=== PATIENT | female | born 1955 | race American Indian/Alaskan Native ===

== ENCOUNTER 2016-09-22 18:43 | Emergency (ER) | payer MEDICARE ==
[2016-09-22 19:04] VITALS: BP 156/94
[2016-09-22 21:37] LABS: Anion Gap 19 mmol/L; BUN/Creatinine Ratio 11.42; Blood Urea Nitrogen 8 mg/dL (7-17); Carbon Dioxide 26 mmol/L (22-30); Chloride 100.4 mmol/L (98-107); Glucose 162 mg/dL (65-100); Potassium 3.9 mmol/L (3.6-5.0); Sodium 141 mmol/L (137-145)
[2016-09-22] MEDS ORDERED: TORADOL IM ONE (21:47)
[2016-09-22] MEDS ORDERED: BENADRYL PO ONE (21:50)
--- NOTE | 2016-09-22 21:56 | XRay Report ---
FINAL REPORT PROCEDURE: XR CHEST ROUTINE 2V TECHNIQUE: PA and lateral chest radiographs were obtained. CPT 79100 HISTORY: cough COMPARISON: July 29, 2015 FINDINGS: Heart: Normal. Mediastinum/Vessels: Normal. Lungs/Pleural space: Normal. Bony thorax: No acute osseous abnormality. Degenerative change Other: IMPRESSION: No acute cardiopulmonary disease.
[2016-09-22 21:57] LABS: Basophils % (Auto) 0.9 % (0.0-1.8); Eosinophils % (Auto) 4.2 % (0.0-4.3); Hematocrit 39.7 % (30.3-42.9); Hemoglobin 13.1 gm/dl (10.1-14.3); Mean Corpuscular HGB Conc 33 % (30-34); Mean Corpuscular Hemoglobin 29 pg (28-32); Mean Corpuscular Volume 88 fl (79-97); Platelet Count 318 K/mm3 (140-440); Red Blood Count 4.49 M/mm3 (3.65-5.03); Red Cell Distribution Width 12.9 % (13.2-15.2); White Blood Count 7.7 K/mm3 (4.5-11.0)
[2016-09-22] MEDS ORDERED: PHENERGAN/CODEINE 6.25-10 MG/5ML PO ONE (22:00)
--- NOTE | 2016-09-22 22:26 | Emergency Department Report ---
Minor Respiratory - HPI Chief Complaint: Upper Respiratory Infection Stated Complaint: COUGH/CONGESTION/STUFFY NOSE Duration: 4 Days Pain Location: Throat, Nose Severity: mild Minor Respiratory: Yes Sore Throat, Yes Able to Tolerate Fluids, Yes Ear Pain, Yes Cough, Yes Fever (low grade fever), No Rhinorrhea, No Sick Contacts, No Hemoptysis, No Chest Pain, No Shortness of Breath Other History: 61 year old female presents to ED with cough, congestion, low grade fever, sore throat and mild sinus headache x4 days. patient is stable, neurologically intact and in no acute distress. ED Review of Systems ROS: Stated complaint: COUGH/CONGESTION/STUFFY NOSE Other details as noted in HPI Constitutional: fever (low grade). denies: chills, diaphoresis, malaise, weakness Eyes: denies: eye pain, eye discharge, vision change ENT: ear pain, throat pain, congestion Respiratory: cough. denies: shortness of breath, stridor, wheezing Cardiovascular: denies: chest pain, palpitations Endocrine: no symptoms reported Gastrointestinal: denies: abdominal pain, nausea, vomiting, diarrhea Genitourinary: denies: urgency, dysuria, discharge Musculoskeletal: denies: back pain, joint swelling, arthralgia Skin: denies: rash, lesions Neurological: denies: headache, weakness, numbness, paresthesias, confusion, abnormal gait, vertigo Psychiatric: denies: anxiety, depression Hematological/Lymphatic: denies: easy bleeding, easy bruising ED Past Medical Hx - Past Medical History Previous Medical History?: Yes Hx Diabetes: Yes Hx Arthritis: Yes Additional medical history: A-Fib - Surgical History Past Surgical History?: Yes Additional Surgical History: Partial Hysterectomy in 2005. hernia repair x 4 - Social History Smoking Status: Never Smoker Substance Use Type: None - Medications Home Medications: Home Medications Medication Instructions Recorded Confirmed Last Taken Type Acyclovir [Zovirax Tab] 800 mg PO 5XD #35 tab 05/17/14 05/21/14 05/21/14 Rx HYDROcodone/APAP 5-325 [[place] 1 each PO Q6HR PRN #14 tablet 05/17/14 05/21/14 Rx 5-325 mg TAB] Hydrocortisone 1% [Hydrocortisone 1 applicatio TP TID #1 tube 05/17/14 05/21/14 05/21/14 Rx 1% CREAM] Hydroxyzine HCl [hydrOXYzine] 50 mg PO Q6H PRN #14 tablet 05/17/14 05/21/14 Unknown Rx Ibuprofen [Motrin] 800 mg PO Q8H PRN #60 tablet 05/17/14 05/21/14 05/21/14 Rx metFORMIN [Glucophage] 850 mg PO BID 05/17/14 05/21/14 05/21/14 History Promethazine /Codeine 5 ml PO Q6H PRN #90 ml 06/27/15 Unknown Rx [Phenergan/Codeine 6.25-10 mg/5Ml] guaiFENesin [Mucinex] 600 mg PO Q12HR #20 tab.er.12h 06/27/15 Unknown Rx Benzonatate [Tessalon Perles] 100 mg PO Q8HR #15 capsule 07/30/15 Unknown Rx HYDROcodone/APAP 5-325 [[place] 1 each PO Q24HR #5 tablet 07/30/15 Unknown Rx 5/325] Azithromycin [Zithromax] 250 mg PO DAILY #1 pack 09/22/16 Unknown Rx Cetirizine HCl/Pseudoephedrine 1 each PO BID #14 tab.er.12h 09/22/16 Unknown Rx [Allergy+Congestion Relf-D Tab] Minor Respiratory Exam - Exam General: Vital signs noted. No distress. Alert and acting appropriately. HEENT: Yes Moist Mucous Membranes, Yes Frontal Tenderness, Yes Maxillary Tenderness, No Pharyngeal Erythema, No Pharyngeal Exudates, No Rhinorrhea, No Conjuctival Injection Ear: Neither TM Bulge, Neither TM Erythema, Neither EAC Pain, Neither EAC Discharge Neck: Yes Supple, No Adenopathy Lungs: Yes Good Air Exchange, No Wheezes, No [place], No Stridor, No Cough, No Labored Respirations, No Retractions, No Use of Accessory Muscles, No Other Abnormal Lung Sounds Heart: Yes Regular, No Murmur Abdomen: Yes Normal Bowel Sounds, No Tenderness, No Peritoneal Signs Skin: No Rash, No Edema Neurologic: Alert and oriented, no deficits. Musculoskeletal: Unremarkable. ED Course Vital Signs 09/22/16 19:02 Temperature 99.8 F H Pulse Rate 78 Respiratory 18 Rate Blood Pressure 156/94 O2 Sat by Pulse 98 Oximetry ED Medical Decision Making - Lab Data Result diagrams: 09/22/16 21:00 09/22/16 21:00 Labs 09/22/16 09/22/16 21:00 21:00 WBC 7.7 RBC 4.49 Hgb 13.1 Hct 39.7 MCV 88 MCH 29 MCHC 33 RDW 12.9 L Plt Count 318 Lymph % (Auto) 29.7 [place] % (Auto) 10.6 H Eos % (Auto) 4.2 Baso % (Auto) 0.9 Lymph # 2.3 [place] # 0.8 Eos # 0.3 Baso # 0.1 Seg Neutrophils % 54.6 Seg Neutrophils # 4.2 Sodium 141 Potassium 3.9 Chloride 100.4 Carbon Dioxide 26 Anion Gap 19 BUN 8 Creatinine 0.7 Estimated GFR > 60 BUN/Creatinine Ratio 11.42 Glucose 162 H Calcium 9.0 Vital Signs 09/22/16 19:02 Temperature 99.8 F H Pulse Rate 78 Respiratory 18 Rate Blood Pressure 156/94 O2 Sat by Pulse 98 Oximetry Temp Pulse Resp BP Pulse Ox 99.2 F 78 18 156/94 98 09/22/16 23:04 09/22/16 19:02 09/22/16 19:02 09/22/16 19:02 09/22/16 19:02 - Radiology Data Radiology results: report reviewed CXR no acute disease - Medical Decision Making 61 year old female presents to ED with productive cough, low grade fever and congestion. patient has normal WBC and normal CXR. patient has had blood cultures drawn and will placed on antibiotics for complicated bronchitis due to patient being diabetic. patient is stable, neurologically intact and in no acute distress. patient understands and agrees not to use Afrin for more than 3 days for congestion. Critical care attestation.: If time is entered above; I have spent that time in minutes in the direct care of this critically ill patient, excluding procedure time. ED Disposition Clinical Impression: Bronchitis, acute Qualifiers: Bronchitis organism: unspecified organism Qualified Code(s): J20.9 - Acute bronchitis, unspecified Disposition: -01 TO HOME OR SELFCARE Is pt being admited?: No Does the pt Need Aspirin: No Condition: Stable Instructions: Acute Bronchitis (ED) Additional Instructions: DO NOT use afrin nasal spray for more than 3 consecutive days total. Use Zyrtec- D for congestion symptoms after 3 days of Afrin. Prescriptions: Azithromycin [Zithromax] 250 mg PO DAILY #1 pack Cetirizine HCl/Pseudoephedrine [Allergy+Congestion Relf-D Tab] 1 each PO BID # 14 tab.er.12h Referrals: YARITZA RONDON MD [Primary Care Provider] - 3-5 Days Forms: Work/School Release Form(ED)
[2016-09-22] MEDS ORDERED: AFRIN NS ONE (22:44)
== END 2016-09-22 23:04 | disposition home or self-care (01) ==
LOC: ED 18:43
DX: J20.9 Acute bronchitis, unspecified (principal); E11.9 Type 2 diabetes mellitus without complications; M19.90 Unspecified osteoarthritis, unspecified site; I48.91 Unspecified atrial fibrillation; Z90.711 Acquired absence of uterus with remaining cervical stump
CPT/HCPCS: 36415; 71020; 80048; 85025; 87040; 87116; 87400; 87430; 96372; 99284; J1885

== ENCOUNTER 2016-12-09 10:34 | Emergency (ER) | payer MEDICARE ==
[2016-12-09 10:45] VITALS: BP 171/115
--- NOTE | 2016-12-09 12:27 | Emergency Department Report ---
ED General Adult HPI - General Chief complaint: Eye Problems Stated complaint: COLD SYMPTOMS Time Seen by Provider: 12/09/16 12:19 Source: patient Mode of arrival: Ambulatory Limitations: No Limitations - History of Present Illness Initial comments: pt is a 58 y/o aaf with hx of asthma, bronchitis, who presents for uri symptoms and "pinkeye" after caring for child with pink eye 3 days ago" as " we stayed hotel with baby with pink eye and now I have it eye green matted mucus for 2 days no change in vision , bronchitis acting up as well cough yellow green phlem , sinus pain , earache, and cough, noc fever" pt endorse out of albuterol, has been taking otc bp medications, for symptoms because she cannot get pcp appointment for 2 weeks. Onset/Timin -: days(s) Location: eyes Radiation: non-radiation Severity scale (0 -10): 4 Quality: burning, other (purulent discharge ) Consistency: intermittent Improves with: none Worsens with: other (in am ) Associated Symptoms: cough, fever/chills. denies: headaches, loss of appetite, malaise, nausea/vomiting, rash, seizure, shortness of breath, syncope, weakness Treatments Prior to Arrival: none - Related Data Home Medications Medication Instructions Recorded Confirmed Last Taken metFORMIN [Glucophage] 850 mg PO BID 05/17/14 05/21/14 05/21/14 Previous Rx's Medication Instructions Recorded Last Taken Type Acyclovir [Zovirax Tab] 800 mg PO 5XD #35 tab 05/17/14 05/21/14 Rx HYDROcodone/APAP 5-325 [[place] 1 each PO Q6HR PRN #14 tablet 05/17/14 05/18/14 Rx 5-325 mg TAB] Hydrocortisone 1% [Hydrocortisone 1 applicatio TP TID #1 tube 05/17/14 05/21/14 Rx 1% CREAM] Hydroxyzine HCl [hydrOXYzine] 50 mg PO Q6H PRN #14 tablet 05/17/14 Unknown Rx Ibuprofen [Motrin] 800 mg PO Q8H PRN #60 tablet 05/17/14 05/21/14 Rx Promethazine /Codeine 5 ml PO Q6H PRN #90 ml 06/27/15 Unknown Rx [Phenergan/Codeine 6.25-10 mg/5Ml] guaiFENesin [Mucinex] 600 mg PO Q12HR #20 tab.er.12h 06/27/15 Unknown Rx Benzonatate [Tessalon Perles] 100 mg PO Q8HR #15 capsule 07/30/15 Unknown Rx HYDROcodone/APAP 5-325 [[place] 1 each PO Q24HR #5 tablet 07/30/15 Unknown Rx 5/325] Azithromycin [Zithromax] 250 mg PO DAILY #1 pack 09/22/16 Unknown Rx Cetirizine HCl/Pseudoephedrine 1 each PO BID #14 tab.er.12h 09/22/16 Unknown Rx [Allergy+Congestion Relf-D Tab] ALBUTEROL Inhaler [ProAir HFA 2 puff IH QID PRN #2 inhalation 12/09/16 Unknown Rx Inhaler] Cetirizine HCl [ZyrTEC] 10 mg PO DAILY #30 capsule 12/09/16 Unknown Rx P-Ephed HCl/Codeine/Guaifen 5 ml PO Q6H PRN #120 ml 12/09/16 Unknown Rx [Cheratussin DAC 30-10-100 mg/5 ml] Polymyxin B Sulf/Trimethoprim 1 drop OP QID #1 bottle 12/09/16 Unknown Rx [Polytrim Eye Drops [id number]/0.1%] Allergies Allergy/AdvReac Type Severity Reaction Status Date / Time tramadol Allergy Rash Verified 09/22/16 19:01 Penicillins AdvReac Shortness Verified 07/30/15 05:34 of Breath shellfish derived AdvReac Rash Verified 07/30/15 05:34 Sulfa (Sulfonamide AdvReac Hives Verified 07/30/15 05:34 Antibiotics) ED Review of Systems ROS: Stated complaint: COLD SYMPTOMS Other details as noted in HPI Constitutional: denies: chills, fever Eyes: eye pain (bilat itching burning ), eye discharge (purulent ). denies: vision change ENT: denies: ear pain, throat pain Respiratory: cough (productive yellow clear ). denies: shortness of breath, wheezing Cardiovascular: denies: chest pain, palpitations Endocrine: no symptoms reported Gastrointestinal: denies: abdominal pain, nausea, diarrhea Genitourinary: denies: urgency, dysuria, discharge Musculoskeletal: denies: back pain, joint swelling, arthralgia Skin: denies: rash, lesions Neurological: denies: headache, weakness, paresthesias Psychiatric: denies: anxiety, depression Hematological/Lymphatic: denies: easy bleeding, easy bruising ED Past Medical Hx - Past Medical History Hx Diabetes: Yes Hx Arthritis: Yes Additional medical history: A-Fib - Surgical History Additional Surgical History: Partial Hysterectomy in 2005. hernia repair x 4 - Social History Smoking Status: Never Smoker Substance Use Type: Alcohol - Medications Home Medications: Home Medications Medication Instructions Recorded Confirmed Last Taken Type Acyclovir [Zovirax Tab] 800 mg PO 5XD #35 tab 05/17/14 05/21/14 05/21/14 Rx HYDROcodone/APAP 5-325 [[place] 1 each PO Q6HR PRN #14 tablet 05/17/14 05/21/14 Rx 5-325 mg TAB] Hydrocortisone 1% [Hydrocortisone 1 applicatio TP TID #1 tube 05/17/14 05/21/14 05/21/14 Rx 1% CREAM] Hydroxyzine HCl [hydrOXYzine] 50 mg PO Q6H PRN #14 tablet 05/17/14 05/21/14 Unknown Rx Ibuprofen [Motrin] 800 mg PO Q8H PRN #60 tablet 05/17/14 05/21/14 05/21/14 Rx metFORMIN [Glucophage] 850 mg PO BID 05/17/14 05/21/14 05/21/14 History Promethazine /Codeine 5 ml PO Q6H PRN #90 ml 06/27/15 Unknown Rx [Phenergan/Codeine 6.25-10 mg/5Ml] guaiFENesin [Mucinex] 600 mg PO Q12HR #20 tab.er.12h 06/27/15 Unknown Rx Benzonatate [Tessalon Perles] 100 mg PO Q8HR #15 capsule 07/30/15 Unknown Rx HYDROcodone/APAP 5-325 [[place] 1 each PO Q24HR #5 tablet 07/30/15 Unknown Rx 5/325] Azithromycin [Zithromax] 250 mg PO DAILY #1 pack 09/22/16 Unknown Rx Cetirizine HCl/Pseudoephedrine 1 each PO BID #14 tab.er.12h 09/22/16 Unknown Rx [Allergy+Congestion Relf-D Tab] ALBUTEROL Inhaler [ProAir HFA 2 puff IH QID PRN #2 inhalation 12/09/16 Unknown Rx Inhaler] Cetirizine HCl [ZyrTEC] 10 mg PO DAILY #30 capsule 12/09/16 Unknown Rx P-Ephed HCl/Codeine/Guaifen 5 ml PO Q6H PRN #120 ml 12/09/16 Unknown Rx [Cheratussin DAC 30-10-100 mg/5 ml] Polymyxin B Sulf/Trimethoprim 1 drop OP QID #1 bottle 12/09/16 Unknown Rx [Polytrim Eye Drops [id number]/0.1%] ED Physical Exam - General Limitations: No Limitations General appearance: alert, in no apparent distress - Head Head exam: Present: atraumatic, normocephalic - Eye Eye exam: Present: normal appearance, PERRL, EOMI, other (conjunctival erythema bilat ) Pupils: Present: normal accommodation - Expanded Eye Exam Expanded Eyelids: Normal Inspection: Left Pupils: Regular, Round: Bilateral, Reactive: Bilateral Sclera/Conjunctival: Injection: Bilateral, Exudate: Bilateral Anterior chamber: Normal Inspection: Bilateral Visual acuity (R) = 20/: 40 Visual acuity (L) = 20/: 40 With correction: No - ENT ENT exam: Present: mucous membranes moist, TM's normal bilaterally, normal external ear exam - Expanded ENT Exam Expanded Mouth exam: Present: normal external inspection, tongue normal. Absent: trismus , tongue elevation Throat exam: Positive: normal inspection, tonsillar erythema (no exudate no lesion uvula midline no stridor airway is patent clear post nasal drip.). Negative: tonsillomegaly, tonsillar exudate, R peritonsillar mass, L peritonsillar mass - Neck Neck exam: Present: normal inspection, full ROM. Absent: tenderness, lymphadenopathy, thyromegaly - Expanded Neck Exam Expanded Neck exam: Absent: tenderness, midline deformity, anterior neck swelling, thyroid mass, carotid bruit, tracheal deviation - Respiratory Respiratory exam: Present: normal lung sounds bilaterally. Absent: respiratory distress, wheezes, stridor, chest wall tenderness - Cardiovascular Cardiovascular Exam: Present: regular rate, normal rhythm. Absent: systolic murmur, diastolic murmur, rubs, gallop - GI/Abdominal GI/Abdominal exam: Present: soft, normal bowel sounds - Rectal Rectal exam: Present: deferred - Extremities Exam Extremities exam: Present: normal inspection - Back Exam Back exam: Present: normal inspection, full ROM. Absent: tenderness, CVA tenderness (R), CVA tenderness (L), muscle spasm, paraspinal tenderness, vertebral tenderness, rash noted - Neurological Exam Neurological exam: Present: alert, oriented X3, normal gait, reflexes normal - Psychiatric Psychiatric exam: Present: normal affect, normal mood - Skin Skin exam: Present: warm, dry, intact, normal color. Absent: rash ED Course Vital Signs 12/09/16 10:41 Temperature 98.6 F Pulse Rate 95 H Blood Pressure 171/115 O2 Sat by Pulse 97 Oximetry ED Medical Decision Making - Medical Decision Making pt is a 58 y/o aaf with hx of asthma, bronchitis, who presents for uri symptoms and "pinkeye" after caring for child with pink eye 3 days ago" as " we stayed hotel with baby with pink eye and now I have it eye green matted mucus for 2 days no change in vision , bronchitis acting up as well cough yellow green phlem , sinus pain , earache, and cough, noc fever" pt endorse out of albuterol, has been taking otc bp medications, for symptoms because she cannot get pcp appointment for 2 weeks. pt denies headache no dizziness no light headedness no cp no sob, exam: no exudate no lesion uvula midline no stridor airway is patent clear post nasal drip. plan tx for conjunctivitis , bronchitis refill albuterol, stop taking otc cold medications, follow up with primary care in 3-4 days as scheduled. Critical care attestation.: If time is entered above; I have spent that time in minutes in the direct care of this critically ill patient, excluding procedure time. ED Disposition Clinical Impression: Bronchitis Conjunctivitis Qualifiers: Conjunctivitis type: acute Acute conjunctivitis type: bacterial Laterality: bilateral Qualified Code(s): H10.33 - Unspecified acute conjunctivitis, bilateral URI (upper respiratory infection) Qualifiers: URI type: acute nasopharyngitis (common cold) Qualified Code(s): J00 - Acute nasopharyngitis [common cold] Disposition: TO HOME OR SELFCARE Is pt being admited?: No Does the pt Need Aspirin: No Condition: Good Instructions: Chronic Bronchitis (ED), Conjunctivitis (ED) Prescriptions: ALBUTEROL Inhaler [ProAir HFA Inhaler] 2 puff IH QID PRN #2 inhalation PRN Reason: Shortness Of Breath Cetirizine HCl [ZyrTEC] 10 mg PO DAILY #30 capsule P-Ephed HCl/Codeine/Guaifen [Cheratussin DAC 30-10-100 mg/5 ml] 5 ml PO Q6H PRN #120 ml PRN Reason: Cough Polymyxin B Sulf/Trimethoprim [Polytrim Eye Drops [id number]/0.1%] 1 drop OP QID #1 bottle Referrals: PRIMARY CARE, [Primary Care Provider] - 3-5 Days Forms: Work/School Release Form(ED) Time of Disposition: 12:58
== END 2016-12-09 13:10 | disposition home or self-care (01) ==
LOC: ED 10:34
DX: J40 Bronchitis, not specified as acute or chronic (principal); H10.9 Unspecified conjunctivitis; J06.9 Acute upper respiratory infection, unspecified; E11.9 Type 2 diabetes mellitus without complications; M19.90 Unspecified osteoarthritis, unspecified site; Z88.2 Allergy status to sulfonamides; Z88.6 Allergy status to analgesic agent; Z88.0 Allergy status to penicillin; Z91.013 Allergy to seafood
CPT/HCPCS: 99282

== ENCOUNTER 2016-12-12 14:53 | Emergency (ER) | payer MEDICARE ==
[2016-12-12 15:18] VITALS: BP 157/86
[2016-12-12] MEDS ORDERED: ZITHROMAX PO ONE (15:18)
[2016-12-12] MEDS ORDERED: TYLENOL PO ONE (15:19)
--- NOTE | 2016-12-12 15:49 | Emergency Department Report ---
Chief Complaint: Fever Stated Complaint: FEVER - HPI History of Present Illness: 61F P/w c/o persisting cough despite use of cough medicines. hx of copd - Exam Vital Signs: Vital Signs 12/12/16 15:14 Temperature 100.8 F H Pulse Rate 91 H Respiratory 20 Rate Blood Pressure 157/86 O2 Sat by Pulse 100 Oximetry Physical Exam: heart s1/s2, lungs grossly clear MSE screening note: Focused history and physical exam performed. Due to findings the following was ordered: a/p: acute bronchitis 1- nebs, tylenol, azithro 2- CXR ED Disposition for MSE Condition: Stable
--- NOTE | 2016-12-12 16:29 | XRay Report ---
ROUTINE CHEST, TWO VIEWS: HISTORY: Short of breath. The trachea, heart, mediastinal contour, lung lewis and bony thorax are unremarkable. IMPRESSION: Unremarkable chest x-ray.
[2016-12-12 17:37] LABS: Bacteria,Urine 1+ /HPF (Negative); Bilirubin,Urine NEG (Negative); Blood,Urine NEG (Negative); Ketones,Urine TR mg/dL (Negative); Leukocyte Esterase,Urine NEG (Negative); Mucus,Urine FEW /HPF; Nitrite,Urine NEG (Negative); Urobilinogen,Urine < 2.0 mg/dL (<2.0)
== END 2016-12-12 18:33 | disposition left against medical advice (07) ==
LOC: ED 14:53
DX: R05 Cough (principal); J44.9 Chronic obstructive pulmonary disease, unspecified
CPT/HCPCS: 71020; 81001

== ENCOUNTER 2017-04-09 12:24 | Emergency (ER) | payer MEDICARE ==
[2017-04-09 13:30] VITALS: BP 122/71
--- NOTE | 2017-04-09 17:23 | Emergency Department Report ---
ED Recheck HPI - General Chief Complaint: Pain General Stated Complaint: BODY PAIN HX ARTHRITIS Time Seen by Provider: 04/09/17 16:39 Source: patient Mode of arrival: Ambulatory Limitations: No Limitations - History of Present Illness Initial Comments: This is a 62-year-old female nontoxic, well nourished in appearance, no acute signs of distress presents to the ED with c/o of generalized Arthritic pain. Patient said this is a chronic condition that she follows up with a primary care doctor which she was referred to a pain specialist. Patient stated the pain specialist is not able to see the patient until next week and patient is in severe pain. Patient denies any chest pain, shortness of breath, fever, chills, body aches, headache, stiff neck, nausea, vomiting, numbness or tingling. She states allergies to sulfa and penicillin and tramadol. MD Complaint: medication refill request -: year(s) Returns Today for: request for prescription Symptoms Since Prior Visit: no new symptoms Associated Symptoms: none. denies: fever, chills, chest pain, shortness of breath, rash, malaise, [place], abdominal pain - Related Data Home Medications Medication Instructions Recorded Confirmed Last Taken metFORMIN [Glucophage] 850 mg PO BID 05/17/14 05/21/14 05/21/14 Previous Rx's Medication Instructions Recorded Last Taken Type Acyclovir [Zovirax Tab] 800 mg PO 5XD #35 tab 05/17/14 05/21/14 Rx HYDROcodone/APAP 5-325 [[place] 1 each PO Q6HR PRN #14 tablet 05/17/14 05/18/14 Rx 5-325 mg TAB] Hydrocortisone 1% [Hydrocortisone 1 applicatio TP TID #1 tube 05/17/14 05/21/14 Rx 1% CREAM] Hydroxyzine HCl [hydrOXYzine] 50 mg PO Q6H PRN #14 tablet 05/17/14 Unknown Rx Ibuprofen [Motrin] 800 mg PO Q8H PRN #60 tablet 05/17/14 05/21/14 Rx Promethazine /Codeine 5 ml PO Q6H PRN #90 ml 06/27/15 Unknown Rx [Phenergan/Codeine 6.25-10 mg/5Ml] guaiFENesin [Mucinex] 600 mg PO Q12HR #20 tab.er.12h 06/27/15 Unknown Rx Benzonatate [Tessalon Perles] 100 mg PO Q8HR #15 capsule 07/30/15 Unknown Rx HYDROcodone/APAP 5-325 [[place] 1 each PO Q24HR #5 tablet 07/30/15 Unknown Rx 5/325] Azithromycin [Zithromax] 250 mg PO DAILY #1 pack 09/22/16 Unknown Rx Cetirizine HCl/Pseudoephedrine 1 each PO BID #14 tab.er.12h 09/22/16 Unknown Rx [Allergy+Congestion Relf-D Tab] ALBUTEROL Inhaler [ProAir HFA 2 puff IH QID PRN #2 inhalation 12/09/16 Unknown Rx Inhaler] Cetirizine HCl [ZyrTEC] 10 mg PO DAILY #30 capsule 12/09/16 Unknown Rx Polymyxin B Sulf/Trimethoprim 1 drop OP QID #1 bottle 12/09/16 Unknown Rx [Polytrim Eye Drops 90254plftx/0.1%] Pseudoephed/Codeine/Guaifen 5 ml PO Q6H PRN #120 ml 12/09/16 Unknown Rx [Cheratussin DAC 30-10-100 mg/5 ml] Azithromycin [Zithromax TAB] 500 mg PO QDAY #6 tablet 12/12/16 Unknown Rx Naproxen [Naprosyn TAB] 500 mg PO BID PRN #20 tablet 12/12/16 Unknown Rx Acetaminophen/Codeine [Tylenol 1 tab PO Q6H PRN #12 tab 04/09/17 Unknown Rx /Codeine # 3 tab] Allergies Allergy/AdvReac Type Severity Reaction Status Date / Time tramadol Allergy Rash Verified 09/22/16 19:01 Penicillins AdvReac Shortness Verified 07/30/15 05:34 of Breath shellfish derived AdvReac Rash Verified 07/30/15 05:34 Sulfa (Sulfonamide AdvReac Hives Verified 07/30/15 05:34 Antibiotics) ED Review of Systems ROS: Stated complaint: BODY PAIN HX ARTHRITIS Other details as noted in HPI Constitutional: denies: chills, fever Eyes: denies: eye pain, eye discharge, vision change ENT: denies: ear pain, throat pain Respiratory: denies: cough, shortness of breath, wheezing Cardiovascular: denies: chest pain, palpitations Endocrine: no symptoms reported Gastrointestinal: denies: abdominal pain, nausea, diarrhea Genitourinary: denies: urgency, dysuria, discharge Musculoskeletal: arthralgia. denies: back pain, joint swelling Skin: denies: rash, lesions Neurological: denies: headache, weakness, paresthesias Psychiatric: denies: anxiety, depression Hematological/Lymphatic: denies: easy bleeding, easy bruising ED Past Medical Hx - Past Medical History Previous Medical History?: Yes Hx Diabetes: Yes Hx Arthritis: Yes Additional medical history: A-Fib - Surgical History Past Surgical History?: Yes Additional Surgical History: Partial Hysterectomy in 2005. hernia repair x 4 - Social History Smoking Status: Former Smoker Substance Use Type: Alcohol, Non Opiate Pain, Prescribed - Medications Home Medications: Home Medications Medication Instructions Recorded Confirmed Last Taken Type Acyclovir [Zovirax Tab] 800 mg PO 5XD #35 tab 05/17/14 05/21/14 05/21/14 Rx HYDROcodone/APAP 5-325 [[place] 1 each PO Q6HR PRN #14 tablet 05/17/14 05/21/14 Rx 5-325 mg TAB] Hydrocortisone 1% [Hydrocortisone 1 applicatio TP TID #1 tube 05/17/14 05/21/14 05/21/14 Rx 1% CREAM] Hydroxyzine HCl [hydrOXYzine] 50 mg PO Q6H PRN #14 tablet 05/17/14 05/21/14 Unknown Rx Ibuprofen [Motrin] 800 mg PO Q8H PRN #60 tablet 05/17/14 05/21/14 05/21/14 Rx metFORMIN [Glucophage] 850 mg PO BID 05/17/14 05/21/14 05/21/14 History Promethazine /Codeine 5 ml PO Q6H PRN #90 ml 06/27/15 Unknown Rx [Phenergan/Codeine 6.25-10 mg/5Ml] guaiFENesin [Mucinex] 600 mg PO Q12HR #20 tab.er.12h 06/27/15 Unknown Rx Benzonatate [Tessalon Perles] 100 mg PO Q8HR #15 capsule 07/30/15 Unknown Rx HYDROcodone/APAP 5-325 [[place] 1 each PO Q24HR #5 tablet 07/30/15 Unknown Rx 5/325] Azithromycin [Zithromax] 250 mg PO DAILY #1 pack 09/22/16 Unknown Rx Cetirizine HCl/Pseudoephedrine 1 each PO BID #14 tab.er.12h 09/22/16 Unknown Rx [Allergy+Congestion Relf-D Tab] ALBUTEROL Inhaler [ProAir HFA 2 puff IH QID PRN #2 inhalation 12/09/16 Unknown Rx Inhaler] Cetirizine HCl [ZyrTEC] 10 mg PO DAILY #30 capsule 12/09/16 Unknown Rx Polymyxin B Sulf/Trimethoprim 1 drop OP QID #1 bottle 12/09/16 Unknown Rx [Polytrim Eye Drops 87432javzy/0.1%] Pseudoephed/Codeine/Guaifen 5 ml PO Q6H PRN #120 ml 12/09/16 Unknown Rx [Cheratussin DAC 30-10-100 mg/5 ml] Azithromycin [Zithromax TAB] 500 mg PO QDAY #6 tablet 12/12/16 Unknown Rx Naproxen [Naprosyn TAB] 500 mg PO BID PRN #20 tablet 12/12/16 Unknown Rx Acetaminophen/Codeine [Tylenol 1 tab PO Q6H PRN #12 tab 04/09/17 Unknown Rx /Codeine # 3 tab] ED Physical Exam - General Limitations: No Limitations General appearance: alert, in no apparent distress - Head Head exam: Present: atraumatic, normocephalic - Eye Eye exam: Present: normal appearance - ENT ENT exam: Present: mucous membranes moist - Neck Neck exam: Present: normal inspection - Respiratory Respiratory exam: Present: normal lung sounds bilaterally. Absent: respiratory distress - Cardiovascular Cardiovascular Exam: Present: regular rate, normal rhythm. Absent: systolic murmur, diastolic murmur, rubs, gallop - GI/Abdominal GI/Abdominal exam: Present: soft, normal bowel sounds - Extremities Exam Extremities exam: Present: normal inspection - Back Exam Back exam: Present: normal inspection - Neurological Exam Neurological exam: Present: alert, oriented X3 - Psychiatric Psychiatric exam: Present: normal affect, normal mood - Skin Skin exam: Present: warm, dry, intact, normal color. Absent: rash ED Course Vital Signs 04/09/17 13:27 Temperature 98.3 F Pulse Rate 69 Respiratory 18 Rate Blood Pressure 122/71 O2 Sat by Pulse 99 Oximetry - Reevaluation(s) Reevaluation #1: 04/09/17 17:25 Patient is speaking in full sentences with no signs of distress noted. ED Recheck MDM - Medical Decision Making 62-year-old female that presents with chronic arthritis pain. Patient is stable and was examined by me. Adela RAMIREZ ran and no recent narcotic prescriptions. I will give patient Tylenol No. 3 at discharge and instructed her not to operate any machinery while taking it due to drowsiness. Patient was also instructed referred to Follow-up with a primary care doctor in 3-5 days or if symptoms worsen and continue return to emergency room as soon as possible. At time time of discharge, the patient does not seem toxic or ill in appearance. No acute signs of distress noted. Patient agrees to discharge treatment plan of care. No further questions noted by the patient. Critical care attestation.: If time is entered above; I have spent that time in minutes in the direct care of this critically ill patient, excluding procedure time. ED Disposition Clinical Impression: Arthritis pain Disposition: DC-01 TO HOME OR SELFCARE Is pt being admited?: No Does the pt Need Aspirin: No Condition: Stable Instructions: Acetaminophen/Codeine (By mouth) Additional Instructions: Follow-up with a primary care doctor in 3-5 days or if symptoms worsen and continue return to emergency room as soon as possible. Prescriptions: Acetaminophen/Codeine [Tylenol /Codeine # 3 tab] 1 tab PO Q6H PRN #12 tab PRN Reason: Pain Referrals: PRIMARY MD BERTHA [Primary Care Provider] - 3-5 Days ROSENDO DOSHI MD [Staff Physician] - 3-5 Days TY BROWN MD [Referring] - 3-5 Days [facility] [Outside] - 3-5 Days [facility] [Outside] - 3-5 Days Forms: Work/School Release Form(ED)
[2017-04-09] MEDS ORDERED: TYLENOL PO ONE (17:28)
== END 2017-04-09 18:29 | disposition home or self-care (01) ==
LOC: ED 12:24
DX: M19.90 Unspecified osteoarthritis, unspecified site (principal); E11.9 Type 2 diabetes mellitus without complications; I48.91 Unspecified atrial fibrillation; Z90.710 Acquired absence of both cervix and uterus; Z87.891 Personal history of nicotine dependence; Z88.0 Allergy status to penicillin; Z88.2 Allergy status to sulfonamides; Z88.6 Allergy status to analgesic agent; Z91.013 Allergy to seafood
CPT/HCPCS: 99282

== ENCOUNTER 2018-04-19 12:29 | Emergency (ER) | payer MEDICARE ==
--- NOTE | 2018-04-19 13:07 | Emergency Department Report ---
Minor Respiratory - HPI Chief Complaint: Pain General Stated Complaint: COUGH/BODYACHE/MED REFILL Time Seen by Provider: 04/19/18 12:44 Duration: 2 Days Pain Location: Throat, Nose, Chest Severity: moderate Minor Respiratory: Yes Rhinorrhea, Yes Sore Throat, Yes Able to Tolerate Fluids, Yes Ear Pain, Yes Cough, Yes Fever, No Sick Contacts, No Hemoptysis, No Chest Pain, No Shortness of Breath Other History: Ms. Rojas is a 63 yo female who presents URI symptoms and request for refill of Hydrocodone/APAP. For 1-2 days, she has had nasal con gestion, sore throat and productive cough green yellow sputum. Mild symptoms. Due to lack of transportation, she was unable to reach her pain management physican this month. She has a rescheduled appointment on Monday. ED Review of Systems ROS: Stated complaint: COUGH/BODYACHE/MED REFILL Other details as noted in HPI Comment: All other systems reviewed and negative Constitutional: fever, malaise ENT: throat pain Respiratory: cough Cardiovascular: denies: chest pain Gastrointestinal: denies: abdominal pain, nausea, vomiting ED Past Medical Hx - Past Medical History Previous Medical History?: Yes Hx Diabetes: Yes Hx Arthritis: Yes Additional medical history: A-Fib - Surgical History Past Surgical History?: Yes Additional Surgical History: Partial Hysterectomy in 2005. hernia repair x 4 - Social History Smoking Status: Never Smoker Substance Use Type: None - Medications Home Medications: Home Medications Medication Instructions Recorded Confirmed Last Taken Type Acyclovir [Zovirax Tab] 800 mg PO 5XD #35 tab 05/17/14 05/21/14 05/21/14 Rx HYDROcodone/APAP 5-325 [[place] 1 each PO Q6HR PRN #14 tablet 05/17/14 05/21/14 05/18/14 Rx 5-325 mg TAB] Hydrocortisone 1% [Hydrocortisone 1 applicatio TP TID #1 tube 05/17/14 05/21/14 05/21/14 Rx 1% CREAM] Hydroxyzine HCl [hydrOXYzine] 50 mg PO Q6H PRN #14 tablet 05/17/14 05/21/14 Unknown Rx Ibuprofen [Motrin] 800 mg PO Q8H PRN #60 tablet 05/17/14 05/21/14 05/21/14 Rx metFORMIN [Glucophage] 850 mg PO BID 05/17/14 05/21/14 05/21/14 History Promethazine /Codeine 5 ml PO Q6H PRN #90 ml 06/27/15 Unknown Rx [Phenergan/Codeine 6.25-10 mg/5Ml] guaiFENesin [Mucinex] 600 mg PO Q12HR #20 tab.er.12h 06/27/15 Unknown Rx Benzonatate [Tessalon Perles] 100 mg PO Q8HR #15 capsule 07/30/15 Unknown Rx HYDROcodone/APAP 5-325 [[place] 1 each PO Q24HR #5 tablet 07/30/15 Unknown Rx 5/325] Azithromycin [Zithromax] 250 mg PO DAILY #1 pack 09/22/16 Unknown Rx Cetirizine HCl/Pseudoephedrine 1 each PO BID #14 tab.er.12h 09/22/16 Unknown Rx [Allergy+Congestion Relf-D Tab] ALBUTEROL Inhaler (OR & NICU) 2 puff IH QID PRN #2 inhalation 12/09/16 Unknown Rx [ProAir HFA Inhaler] Cetirizine HCl [ZyrTEC] 10 mg PO DAILY #30 capsule 12/09/16 Unknown Rx Polymyxin B Sulf/Trimethoprim 1 drop OP QID #1 bottle 12/09/16 Unknown Rx [Polytrim Eye Drops 47018mqyle/0.1%] Pseudoephed/Codeine/Guaifen 5 ml PO Q6H PRN #120 ml 12/09/16 Unknown Rx [Cheratussin DAC 30-10-100 mg/5 ml] Azithromycin [Zithromax TAB] 500 mg PO QDAY #6 tablet 12/12/16 Unknown Rx Naproxen [Naprosyn TAB] 500 mg PO BID PRN #20 tablet 12/12/16 Unknown Rx Acetaminophen/Codeine [Tylenol 1 tab PO Q6H PRN #12 tab 04/09/17 Unknown Rx /Codeine # 3 tab] HYDROcodone/APAP 5-325 [[place] 1 each PO Q6HR PRN #10 tablet 04/19/18 Unknown Rx 5/325] Loratadine 10 mg PO DAILY #14 capsule 04/19/18 Unknown Rx Minor Respiratory Exam - Exam General: Vital signs noted. No distress. Alert and acting appropriately. appears well, lively, healthy HEENT: Yes Moist Mucous Membranes, No Pharyngeal Erythema, No Pharyngeal Exudates, No Rhinorrhea, No Conjuctival Injection, No Frontal Tenderness, No Ma xillary Tenderness Neck: Yes Supple, No Adenopathy Lungs: Yes Good Air Exchange, No Wheezes, No Ronchi, No Stridor, No Cough, No Labored Respirations, No Retractions, No Use of Accessory Muscles, No Other Abnormal Lung Sounds Heart: Yes Regular, No Murmur Abdomen: Yes Normal Bowel Sounds, No Tenderness, No Peritoneal Signs Skin: No Rash, No Edema Neurologic: Alert and oriented, no deficits. Musculoskeletal: Unremarkable. ED Course Vital Signs 04/19/18 12:33 Temperature 98.6 F Pulse Rate 103 H Respiratory 18 Rate Blood Pressure 156/103 O2 Sat by Pulse 100 Oximetry ED Medical Decision Making - Medical Decision Making acute viral URI, rx: loratadine I provided 10 tabs of hydrocodone/APAP. According to [facility] database, last refill of hydrocdone filled 03/08/2018. She consistently has the same provide every few months. Critical care attestation.: If time is entered above; I have spent that time in minutes in the direct care of this critically ill patient, excluding procedure time. ED Disposition Clinical Impression: URI (upper respiratory infection), Arthritis, Chronic pain, Medication refill Disposition: DC-01 TO HOME OR SELFCARE Is pt being admited?: No Does the pt Need Aspirin: No Condition: Stable Instructions: Upper Respiratory Infection (ED) Prescriptions: HYDROcodone/APAP 5-325 [[place] 5/325] 1 each PO Q6HR PRN #10 tablet PRN Reason: Pain Loratadine 10 mg PO DAILY #14 capsule Referrals: [facility] [Outside] - 3-5 Days HOSSEIN VERONICA DO [Staff Physician] - 3-5 Days
== END 2018-04-19 13:24 | disposition home or self-care (01) ==
LOC: ED 12:29

== ENCOUNTER 2018-04-23 08:53 | Emergency (ER) | payer MEDICARE ==
[2018-04-23 09:08] VITALS: BP 143/77
[2018-04-23] MEDS ORDERED: PROVENTIL IH ONE (11:05)
--- NOTE | 2018-04-23 11:07 | Emergency Department Report ---
Minor Respiratory - HPI Chief Complaint: Upper Respiratory Infection Stated Complaint: CONGESTION/KIKA Time Seen by Provider: 04/23/18 10:57 Duration: 5 Days Pain Location: Facial, Throat, Nose, Ear, Chest Severity: mild Minor Respiratory: Yes Rhinorrhea, Yes Sore Throat, Yes Able to Tolerate Fluids, Yes Ear Pain, Yes Cough, No Sick Contacts, No Hemoptysis, No Chest Pain, No Shortness of Breath, No Fever Other History: Patient is a 63-year-old female who was seen in the emergency room here at [facility] 3 days ago for the same symptoms. She states that she was only given allergy medicine. She is back with wheezing cough and body aches. She is also requesting medication refills including her [place]. She follows with Dr. Dahl an outpatient basis. She is ambulatory, nontoxic and afebrile. She denies chest pain or sob. ED Review of Systems ROS: Stated complaint: CONGESTION/KIKA Other details as noted in HPI Comment: All other systems reviewed and negative Constitutional: see HPI. denies: chills, fever Eyes: denies: eye pain, eye discharge, vision change ENT: as per HPI, ear pain, throat pain. denies: dental pain, hearing loss, epistaxis Respiratory: see HPI, cough, wheezing. denies: orthopnea Cardiovascular: denies: chest pain Endocrine: denies: excessive sweating Gastrointestinal: denies: nausea Genitourinary: denies: as per HPI, urgency Musculoskeletal: denies: back pain Skin: denies: lesions Neurological: denies: headache Psychiatric: denies: anxiety Hematological/Lymphatic: denies: as per HPI ED Past Medical Hx - Past Medical History Previous Medical History?: Yes Hx Hypertension: Yes Hx Diabetes: Yes Hx Arthritis: Yes Hx Asthma: Yes Additional medical history: A-Fib - Surgical History Past Surgical History?: Yes Additional Surgical History: Partial Hysterectomy in 2005. hernia repair x 4 - Family History Family history: no significant - Social History Smoking Status: Former Smoker Substance Use Type: Alcohol - Medications Home Medications: Home Medications Medication Instructions Recorded Confirmed Last Taken Type Acyclovir [Zovirax Tab] 800 mg PO 5XD #35 tab 05/17/14 05/21/14 05/21/14 Rx metFORMIN [Glucophage] 850 mg PO BID 05/17/14 05/21/14 05/21/14 History ALBUTEROL Inhaler (OR & NICU) 2 puff IH QID PRN #2 inhalation 12/09/16 Unknown Rx [ProAir HFA Inhaler] Loratadine 10 mg PO DAILY #14 capsule 04/19/18 Unknown Rx Azithromycin [Zithromax Z-OSCAR] 250 mg PO DAILY #6 tablet 04/23/18 Unknown Rx Benzonatate [Tessalon Perles] 100 mg PO Q8HR PRN #20 capsule 04/23/18 Unknown Rx Fluticasone [Flonase] 1 spray NS QDAY #1 bottle 04/23/18 Unknown Rx HYDROcodone/APAP 5-325 [[place] 1 each PO Q8H PRN #9 tablet 04/23/18 Unknown Rx 5/325] methylPREDNISolone [Medrol] 4 mg PO DAILY #1 tab.ds.pk 04/23/18 Unknown Rx Minor Respiratory Exam - Exam General: Vital signs noted. No distress. Alert and acting appropriately. HEENT: Yes Pharyngeal Erythema, Yes Moist Mucous Membranes, Yes Rhinorrhea, Yes Frontal Tenderness, Yes Maxillary Tenderness, No Pharyngeal Exudates, No Conjuctival Injection Ear: Both TM Erythema, Neither TM Bulge, Neither EAC Pain, Neither EAC Discharge Neck: Yes Supple, No Adenopathy Lungs: Yes Good Air Exchange, Yes Wheezes (bilateral), No Ronchi, No Stridor, No Cough, No Labored Respirations, No Retractions, No Use of Accessory Muscles, No Other Abnormal Lung Sounds Heart: Yes Regular, No Murmur Abdomen: Yes Normal Bowel Sounds, No Tenderness, No Peritoneal Signs Skin: No Rash, No Edema Neurologic: Alert and oriented, no deficits. Musculoskeletal: Unremarkable. ED Course Vital Signs 04/23/18 09:04 Temperature 98.5 F Pulse Rate 80 Respiratory 20 Rate Blood Pressure 143/77 O2 Sat by Pulse 97 Oximetry - Reevaluation(s) Reevaluation #1: 04/23/18 11:24 mild wheezing which cleared with RT treatment pt educated on med refills for her [place]. ED Medical Decision Making - Radiology Data Radiology results: report reviewed, image reviewed No acute process - Medical Decision Making History is a return patient to the ER. She was seen here a few days ago. Her symptoms of gotten no better. She has an asthmatic. Wheezing on admission. Was treated with a DuoNeb and steroids here in the ER. Being discharged home on antibiotic steroids and follow-up with her primary care. She is also requesting refill of her [place]. I told her we would give her 3 days worth and that this was the last of her ER refills for her narcotic medicines. She states that she canceled her appointment with Dr. Dahl today to come here. XR NEG VSS AFEBRILE AMBULATORY NON TOXIC TAKING PO - Differential Diagnosis URI Critical care attestation.: If time is entered above; I have spent that time in minutes in the direct care of this critically ill patient, excluding procedure time. ED Disposition Clinical Impression: URI (upper respiratory infection), Medication refill, Asthma with acute exacerbation Disposition: TO HOME OR SELFCARE Is pt being admited?: No Does the pt Need Aspirin: No Condition: Stable Instructions: Asthma (ED), Upper Respiratory Infection (ED) Additional Instructions: Hydrate well with water Indications as ordered today Follow up with Dr. Dahl for any additional narcotic prescriptions. They will not be given in the emergency room. Meds as ordered today Monitor your blood sugar for may have a slight increase over the next couple days Diabetic diet Activity as tolerated Take [id number] Motrin and Tylenol for mild pain Referrals: BESS GHOSH MD [Primary Care Provider] - 3-5 Days Time of Disposition: 11:23
[2018-04-23] MEDS ORDERED: DELTASONE PO NR (12:00)
--- NOTE | 2018-04-23 15:03 | XRay Report ---
ROUTINE CHEST, TWO VIEWS: Cough PA and lateral views demonstrate the heart and mediastinal contour to be of normal size and shape. The lungs are clear and fully expanded and the soft tissues and bony structures are normal. IMPRESSION: Normal study.
== END 2018-04-23 11:48 | disposition home or self-care (01) ==
LOC: ED 08:53
DX: J06.9 Acute upper respiratory infection, unspecified (principal); J45.901 Unspecified asthma with (acute) exacerbation; I10 Essential (primary) hypertension; Z76.0 Encounter for issue of repeat prescription; E11.9 Type 2 diabetes mellitus without complications; M19.90 Unspecified osteoarthritis, unspecified site; Z90.710 Acquired absence of both cervix and uterus; Z87.891 Personal history of nicotine dependence; Z88.2 Allergy status to sulfonamides; Z88.8 Allergy status to other drugs, medicaments and biological substances; Z88.6 Allergy status to analgesic agent; Z91.013 Allergy to seafood
CPT/HCPCS: 71046; 94640; 99283; J7512

== ENCOUNTER 2018-09-16 09:52 | Emergency (ER) | payer MEDICARE ==
[2018-09-16 10:04] VITALS: BP 145/80
[2018-09-16] MEDS ORDERED: TORADOL IM ONE (12:11)
--- NOTE | 2018-09-16 12:34 | Emergency Department Report ---
ED Back Pain/Injury HPI - General Chief Complaint: Back Pain/Injury Stated Complaint: BODY PAIN Time Seen by Provider: 09/16/18 11:35 Source: patient Limitations: No Limitations - History of Present Illness Initial Comments: This is a 63-year-old female nontoxic, well nourished in appearance, no acute signs of distress presents to the ED with c/o of acute on chronic lower back pain. Patient stated that the past 2 days she was moving and developed this pain. Patient states has history of sciatica nerve pain which is similar symptoms as today. Patient states that pain radiates through to his left lower extremity. Patient denies any trauma. Denies any bladder or bowel instability. Patient denies any urinary symptoms. Denies any fever, chills, nausea, vomiting, headache, stiff neck, chest pain or shortness of breath. Patient denies any numbness or tingling. Denies any allergies. Denies significant past medical history. MD Complaint: back pain -: year(s) Similar Symptoms Previously: Yes Place: home Radiation: left leg Severity: mild Severity scale (0 -10): 8 Quality: aching Consistency: intermittent Improves With: immobilization, sitting upright Worsens With: movement, walking Context: while lifting, turning/twisting Associated Symptoms: denies other symptoms. denies: confusion, chest pain, numbness, difficulty walking, cough, difficulty urinating, diaphoresis, incontinence, fever/chills, constipation, headaches, abdominal pain, loss of appetite, malaise, nausea/vomiting, rash, seizure, shortness of breath, syncope - Related Data Home Medications Medication Instructions Recorded Confirmed Last Taken metFORMIN [Glucophage] 850 mg PO BID 05/17/14 05/21/14 05/21/14 Previous Rx's Medication Instructions Recorded Last Taken Type Acyclovir [Zovirax Tab] 800 mg PO 5XD #35 tab 05/17/14 05/21/14 Rx ALBUTEROL Inhaler (OR & NICU) 2 puff IH QID PRN #2 inhalation 12/09/16 Unknown Rx [ProAir HFA Inhaler] Loratadine 10 mg PO DAILY #14 capsule 04/19/18 Unknown Rx Azithromycin [Zithromax Z-OSCAR] 250 mg PO DAILY #6 tablet 04/23/18 Unknown Rx Benzonatate [Tessalon Perles] 100 mg PO Q8HR PRN #20 capsule 04/23/18 Unknown Rx Fluticasone [Flonase] 1 spray NS QDAY #1 bottle 04/23/18 Unknown Rx HYDROcodone/APAP 5-325 [[place] 1 each PO Q8H PRN #9 tablet 04/23/18 Unknown Rx 5/325] methylPREDNISolone [Medrol] 4 mg PO DAILY #1 tab.ds.pk 04/23/18 Unknown Rx Cyclobenzaprine [Flexeril] 10 mg PO QHS PRN #10 tablet 09/16/18 Unknown Rx Ibuprofen [Motrin] 600 mg PO Q8H PRN #20 tablet 09/16/18 Unknown Rx Allergies Allergy/AdvReac Type Severity Reaction Status Date / Time tramadol Allergy Rash Verified 09/16/18 10:05 Penicillins AdvReac Shortness Verified 09/16/18 10:05 of Breath shellfish derived AdvReac Rash Verified 09/16/18 10:05 Sulfa (Sulfonamide AdvReac Hives Verified 09/16/18 10:05 Antibiotics) ED Review of Systems ROS: Stated complaint: BODY PAIN Other details as noted in HPI Constitutional: denies: chills, fever Eyes: denies: eye pain, eye discharge, vision change ENT: denies: ear pain, throat pain Respiratory: denies: cough, shortness of breath, wheezing Cardiovascular: denies: chest pain, palpitations Endocrine: no symptoms reported Gastrointestinal: denies: abdominal pain, nausea, diarrhea Genitourinary: denies: urgency, dysuria, discharge Musculoskeletal: back pain. denies: joint swelling, arthralgia Skin: denies: rash, lesions Neurological: denies: headache, weakness, paresthesias Psychiatric: denies: anxiety, depression Hematological/Lymphatic: denies: easy bleeding, easy bruising ED Past Medical Hx - Past Medical History Hx Hypertension: Yes Hx Diabetes: Yes Hx Arthritis: Yes Hx Asthma: Yes Additional medical history: A-Fib - Surgical History Additional Surgical History: Partial Hysterectomy in 2005. hernia repair x 4 - Social History Smoking Status: Never Smoker Substance Use Type: None - Medications Home Medications: Home Medications Medication Instructions Recorded Confirmed Last Taken Type Acyclovir [Zovirax Tab] 800 mg PO 5XD #35 tab 05/17/14 05/21/14 05/21/14 Rx metFORMIN [Glucophage] 850 mg PO BID 02/05/21/14 05/21/14 History ALBUTEROL Inhaler (OR & NICU) 2 puff IH QID PRN #2 inhalation 12/09/16 Unknown Rx [ProAir HFA Inhaler] Loratadine 10 mg PO DAILY #14 capsule 04/19/18 Unknown Rx Azithromycin [Zithromax Z-OSCAR] 250 mg PO DAILY #6 tablet 04/23/18 Unknown Rx Benzonatate [Tessalon Perles] 100 mg PO Q8HR PRN #20 capsule 04/23/18 Unknown Rx Fluticasone [Flonase] 1 spray NS QDAY #1 bottle 04/23/18 Unknown Rx HYDROcodone/APAP 5-325 [[place] 1 each PO Q8H PRN #9 tablet 04/23/18 Unknown Rx 5/325] methylPREDNISolone [Medrol] 4 mg PO DAILY #1 tab.ds.pk 04/23/18 Unknown Rx Cyclobenzaprine [Flexeril] 10 mg PO QHS PRN #10 tablet 09/16/18 Unknown Rx Ibuprofen [Motrin] 600 mg PO Q8H PRN #20 tablet 09/16/18 Unknown Rx ED Physical Exam - General Limitations: No Limitations General appearance: alert, in no apparent distress - Head Head exam: Present: atraumatic, normocephalic - Extremities Exam Extremities exam: Present: normal inspection, full ROM, normal capillary refill. Absent: tenderness - Back Exam Back exam: Present: normal inspection, full ROM, paraspinal tenderness (lumbar paraspinnal). Absent: tenderness, CVA tenderness (R), CVA tenderness (L), muscle spasm, vertebral tenderness, rash noted - Expanded Back Exam Expanded Back exam: Absent: saddle anesthesia Back exam: Negative Straight Leg Raising: Left, Right - Neurological Exam Neurological exam: Present: alert, oriented X3 - Psychiatric Psychiatric exam: Present: normal affect, normal mood - Skin Skin exam: Present: warm, dry, intact, normal color. Absent: rash ED Course Vital Signs 09/16/18 10:03 Temperature 98.3 F Pulse Rate 83 Respiratory 17 Rate Blood Pressure 145/80 O2 Sat by Pulse 98 Oximetry - Reevaluation(s) Reevaluation #1: 09/16/18 12:32 Patient is speaking in full sentences with no signs of distress noted. ED Medical Decision Making - Medical Decision Making This is a 63-year-old female that presents with low back strain. Patient is stable was examined by me. There is no spinal tenderness. There is no cauda equina syndrome during examination. No bladder or bowel instability. Patient refused Toradol shot for pain. Patient is discharged with muscle relaxant and Motrin. Patient was instructed not to operate any machinery while taking muscle relaxant as they cause her drowsiness. Patient was referred to Follow-up with a primary care doctor in 3-5 days or if symptoms worsen and continue return to emergency room as soon as possible. At time of discharge, the patient does not seem toxic or ill in appearance. No acute signs of distress noted. Patient agrees to discharge treatment plan of care. No further questions noted by the patient. This chart is dictated with using [employer] Critical care attestation.: If time is entered above; I have spent that time in minutes in the direct care of this critically ill patient, excluding procedure time. ED Disposition Clinical Impression: Low back strain Qualifiers: Encounter type: initial encounter Qualified Code(s): S39.012A - Strain of muscle, fascia and tendon of lower back, initial encounter Disposition: - TO HOME OR SELFCARE Is pt being admited?: No Does the pt Need Aspirin: No Condition: Stable Instructions: Low Back Strain (ED), Cyclobenzaprine (By mouth) Additional Instructions: Follow-up with your primary care doctor in 3-5 days or if symptoms worsen such as bladder or bowel stability, chest pain, short of breath, numbness or tingling sensation in extremities, headache, dizziness, visual changes, nausea vomiting, or abdominal pain, return back to emergency room as was possible. Take ibuprofen and Flexeril as prescribed. Do not operate heavy machinery while taking Flexeril due to sedation Prescriptions: Cyclobenzaprine [Flexeril] 10 mg PO QHS PRN #10 tablet PRN Reason: Muscle Spasm Ibuprofen [Motrin] 600 mg PO Q8H PRN #20 tablet PRN Reason: Pain Referrals: ALFREDA LOJA MD [Primary Care Provider] - 3-5 Days PRIMARY MD BERTHA [Referring] - 3-5 Days ROSENDO DOSHI MD [Staff Physician] - 3-5 Days [facility] [Outside] - 3-5 Days [facility] [Outside] - 3-5 Days Forms: Work/School Release Form(ED)
== END 2018-09-16 12:38 | disposition home or self-care (01) ==
LOC: ED 09:52
DX: S39.012A Strain of muscle, fascia and tendon of lower back, initial encounter (principal); I10 Essential (primary) hypertension; E11.9 Type 2 diabetes mellitus without complications; M19.90 Unspecified osteoarthritis, unspecified site; J45.909 Unspecified asthma, uncomplicated; I48.92 Unspecified atrial flutter; Z90.710 Acquired absence of both cervix and uterus; Z79.899 Other long term (current) drug therapy; Z88.2 Allergy status to sulfonamides; Z88.8 Allergy status to other drugs, medicaments and biological substances; Z88.6 Allergy status to analgesic agent; Z88.0 Allergy status to penicillin; Z91.013 Allergy to seafood; X50.0XXA Overexertion from strenuous movement or load, initial encounter; Y93.89 Activity, other specified; Y92.098 Other place in other non-institutional residence as the place of occurrence of the external cause; Y99.8 Other external cause status
CPT/HCPCS: 99282; J1885